=== PATIENT | male | born 1950 | race African-American/Black ===

== ENCOUNTER 2016-07-28 10:11 | Emergency (ER) | payer MEDICARE, OTHER ==
[~2016-07-28] VITALS: Ht 177.8 cm; Wt 81.8 kg
[~2016-07-28 10:11] MED LIST: ADVAIR 500/28 DISKU1 IH; ADVIL200 MG PO; AEROBID INHALER7 GM IH; ALBUTEROL0.09 MG/A1 IH; AMLODIPINE10 MG PO; ASMANEX TW0.22 MG/A1 IH; ASPIRIN 81M81 MG/TA2 PO; ATROVENT I0.2 MG/1 M IH; CLARITIN 1010 MG/TAB PO; CLARITIN REDITA10 MG PO; D-31000 IU PO; FISH OIL CONCEN1 SGL PO; FLOMAX 0.40.4 MG/CAP PO; FLONASE NASAL S16 GM NS; FOSINOPRIL SODI10 MG PO; FOSINOPRIL SODI40 MG PO; HCTZ 25MG TAB25 MG PO; HCTZ 25MG25 MG PO; IPRATROPIUM BROM3 M1 IH; KEPPRA 500MG500 MG PO; LANAVITE1 CAP PO; LEVAQUIN 250MG250 MG PO; LEVAQUIN 750MG750 M1 PO; MEDROL 4MG DOSPA4 MG PO; MILLIPRED5 MG PO; MUCINEX 60600 MG/TA1 PO; MULTIPLE VITAMI1 CAP PO; NORCO 325 MG-51 TAB PO; NORVASC 10MG10 MG PO; NORVASC 5MG5 MG/TAB PO; OMEGA 31000 MG PO; PRAVACHOL80 MG PO; PREDNISONE20 MG PO; PRILOTC PO; PRINIVIL40 MG PO; PROAIR HFA0.09 MG/AC IH; RANITIDINE300 MG PO; RT ADVAIR 528 DISKUS IH; SEE LIST; SEREVENT IH; SINGULAIR 110 MG/TAB PO; SINGULAIR10 MG PO; TRIAMINIC COUG PO; TUSS PO; UNABLE; ZOCOR 80MG80 MG PO
[2016-07-28 10:16] VITALS: TEMP 98.5
[2016-07-28] MEDS ORDERED: D-1000 185 MG-11 TAB PO (10:23)
[2016-07-28 10:44] LABS: BASO % 0.1 % (0.0-2.0); EOS # 0.2 (0.0-0.7); EOS % 1.4 % (0-4.0); GRAN # 10.9 (1.4-6.5); GRAN % 82.1 % (42.2-75.2); HEMATOCRIT 42.8 % (42.0-52.0); HEMOGLOBIN 14.3 g/dl (13.5-18.0); LYMPH # 1.6 (1.2-3.4); LYMPH % 11.9 % (20.0-51.0); MEAN CELL VOLUME 92 fl (80.0-100.0); MEAN CORPUSCULAR HEMOGLOBIN 31 pg (27.0-31.0); MEAN CORPUSCULAR HGB CONC 33 g/dl (33.0-37.0); MEAN PLATELET VOLUME 10.2 fl (7.4-10.4); MONO # 0.5 (0.1-0.6); MONO % 3.8 % (1.7-9.3); PLATELET COUNT 215 K/mm3 (130-400); RED BLOOD COUNT 4.64 M/mm3 (4.20-5.60); REDCELL DISTRIBUTION WIDTH-CV 13.3 % (11.5-14.5); WHITE BLOOD COUNT 13.3 K/mm3 (4.8-10.8)
[2016-07-28 10:55] LABS: ADJUSTED CALCIUM 9.8 mg/dL (8.4-10.2); ALANINE AMINOTRANSFERASE 35 U/L (21-72); ALBUMIN 4.1 gm/dL (3.5-5.0); ALKALINE PHOSPHATASE 94 U/L (50-136); ANION GAP 13 mmol/L (7-16); BILIRUBIN,TOTAL 1.5 mg/dL (0.0-1.0); BLOOD UREA NITROGEN 12 mg/dL (9-20); CALCIUM 9.9 mg/dL (8.4-10.2); CARBON DIOXIDE 27 mmol/L (22-30); CHLORIDE 101 mmol/L (98-107); CREATININE, serum 0.99 mg/dL (0.66-1.25); GLUCOSE 114 mg/dL (74-106); POTASSIUM 3.1 mmol/L (3.4-5.0); SODIUM 141 mmol/L (137-145); TOTAL PROTEIN 7.1 gm/dL (6.4-8.2)
[2016-07-28 10:59] LABS: LIPASE < 10 U/L (23-300)
[2016-07-28 11:07] LABS: B-TYPE NATRIURETIC PEPTIDE 80 pg/mL (0-125)
[2016-07-28 11:32] LABS: TROPONIN-I < 0.012 ng/mL (0.000-0.034)
[2016-07-28] MEDS ORDERED: ATROVENT INHALE14 GM IH (11:46)
[2016-07-28] MEDS ORDERED: LEVAQUIN 750MG750 M1 PO (11:46)
[2016-07-28] MEDS ORDERED: PREDNISONE20 MG PO (11:46)
[2016-07-28] MEDS ORDERED: ULTRAM 50MG TAB50 MG PO (11:46)
[2016-07-28 12:30] VITALS: BP 115/80; PULSE 98
[2016-10-21] MEDS ORDERED: SPIRIVA RE2.5 MCG/Ac IH (03:37)
[2016-10-21] MEDS ORDERED: PREDNISONE10 MG PO ×2 (04:55→05:25)
== END 2016-07-28 12:30 | disposition home or self-care (01) ==
LOC: COL.ER 10:11
PROVIDERS: Emergency Medicine
DX: J18.9 Pneumonia, unspecified organism (principal); J44.0 Chronic obstructive pulmonary disease with (acute) lower respiratory infection; J44.1 Chronic obstructive pulmonary disease with (acute) exacerbation; I10 Essential (primary) hypertension; I45.2 Bifascicular block
CPT/HCPCS: J1170; J1885; J7512

== ENCOUNTER 2016-09-05 08:37 | Emergency (ER) | payer MEDICARE, OTHER ==
[~2016-09-05] VITALS: Ht 177.8 cm; Wt 81.8 kg
[~2016-09-05 08:37] MED LIST changes: +ATROVENT INHALE14 GM IH; +D-1000 185 MG-11 TAB PO; +ULTRAM 50MG TAB50 MG PO
[2016-09-05 08:44] VITALS: TEMP 97.8
[2016-09-05 09:16] LABS: BASO % 0.4 % (0.0-2.0); EOS # 0.8 (0.0-0.7); EOS % 14.8 % (0-4.0); GRAN # 3.4 (1.4-6.5); GRAN % 62.2 % (42.2-75.2); HEMATOCRIT 38.3 % (42.0-52.0); LYMPH # 0.6 (1.2-3.4); LYMPH % 11.4 % (20.0-51.0); MEAN CELL VOLUME 91 fl (80.0-100.0); MEAN CORPUSCULAR HEMOGLOBIN 31 pg (27.0-31.0); MEAN CORPUSCULAR HGB CONC 34 g/dl (33.0-37.0); MEAN PLATELET VOLUME 9.7 fl (7.4-10.4); MONO # 0.6 (0.1-0.6); MONO % 10.7 % (1.7-9.3); PLATELET COUNT 268 K/mm3 (130-400); RED BLOOD COUNT 4.19 M/mm3 (4.20-5.60); REDCELL DISTRIBUTION WIDTH-CV 12.8 % (11.5-14.5); WHITE BLOOD COUNT 5.5 K/mm3 (4.8-10.8)
[2016-09-05 09:29] LABS: ADJUSTED CALCIUM 9.9 mg/dL (8.4-10.2); ALBUMIN 4.1 gm/dL (3.5-5.0); CREATININE, serum 0.99 mg/dL (0.66-1.25); POTASSIUM 3.4 mmol/L (3.4-5.0); TOTAL PROTEIN 7.4 gm/dL (6.4-8.2)
[2016-09-05] MEDS ORDERED: IPRATROPIUM BROM3 M1 IH (10:23)
[2016-09-05] MEDS ORDERED: LEVAQUIN 5500 MG/TA1 PO (10:23)
[2016-09-05] MEDS ORDERED: PREDNISONE20 MG PO (10:23)
[2016-09-05 11:00] VITALS: BP 121/93; PULSE 102
[2016-10-21] MEDS ORDERED: SPIRIVA RE2.5 MCG/Ac IH (03:37)
[2016-10-21] MEDS ORDERED: PREDNISONE10 MG PO ×2 (04:55→05:25)
== END 2016-09-05 11:01 | disposition home or self-care (01) ==
LOC: COL.ER 08:37
PROVIDERS: Family Medicine
DX: J69.0 Pneumonitis due to inhalation of food and vomit (principal); J44.0 Chronic obstructive pulmonary disease with (acute) lower respiratory infection; J20.9 Acute bronchitis, unspecified; I10 Essential (primary) hypertension; J45.909 Unspecified asthma, uncomplicated; K80.20 Calculus of gallbladder without cholecystitis without obstruction; I51.7 Cardiomegaly; K21.9 Gastro-esophageal reflux disease without esophagitis
CPT/HCPCS: J7030; J8540; Q9967

== ENCOUNTER → 2016-10-21 | Emergency (ER) | payer MEDICARE, OTHER ==
[~2016-10-21] VITALS: Ht 177.8 cm; Wt 81.8 kg
[~2016-10-21] MED LIST changes: +CLEOCIN HCL300 MG PO; +LEVAQUIN 5500 MG/TA1 PO; +PREDNISONE10 MG PO; +PROTONIX 40MG T40 MG PO; +REGLAN 10MG10 MG/TAB PO; +SPIRIVA RE2.5 MCG/Ac IH
[2016-10-21 03:32] VITALS: TEMP 98.2
[2016-10-21 04:08] LABS: BASO % 0.6 % (0.0-2.0); EOS # 1.1 (0.0-0.7); GRAN # 2.5 (1.4-6.5); HEMATOCRIT 37.8 % (42.0-52.0); HEMOGLOBIN 12.5 g/dl (13.5-18.0); LYMPH # 0.9 (1.2-3.4); LYMPH % 17.6 % (20.0-51.0); MEAN CELL VOLUME 92 fl (80.0-100.0); MEAN CORPUSCULAR HEMOGLOBIN 30 pg (27.0-31.0); MEAN CORPUSCULAR HGB CONC 33 g/dl (33.0-37.0); MEAN PLATELET VOLUME 9.6 fl (7.4-10.4); MONO # 0.5 (0.1-0.6); MONO % 9.2 % (1.7-9.3); PLATELET COUNT 345 K/mm3 (130-400); RED BLOOD COUNT 4.11 M/mm3 (4.20-5.60); REDCELL DISTRIBUTION WIDTH-CV 13.7 % (11.5-14.5)
[2016-10-21 05:26] VITALS: BP 134/91; PULSE 89
[2016-10-21 06:39] LABS: ADJUSTED CALCIUM 10.1 mg/dL (8.4-10.2); ALBUMIN 4.4 gm/dL (3.5-5.0); BILIRUBIN,TOTAL 0.7 mg/dL (0.0-1.0); CALCIUM 10.4 mg/dL (8.4-10.2); CREATININE, serum 1.09 mg/dL (0.66-1.25); POTASSIUM 3.8 mmol/L (3.4-5.0); TOTAL PROTEIN 7.1 gm/dL (6.4-8.2)
== END | disposition home or self-care (01) ==
LOC: COL.ER 03:30
PROVIDERS: Emergency Medicine
DX: T17.908A Unspecified foreign body in respiratory tract, part unspecified causing other injury, initial encounter (principal); R06.02 Shortness of breath; K22.8 Other specified diseases of esophagus; K21.9 Gastro-esophageal reflux disease without esophagitis; J45.909 Unspecified asthma, uncomplicated; I10 Essential (primary) hypertension
CPT/HCPCS: J7512

== ENCOUNTER 2016-11-20 06:06 | Emergency (ER) | payer MEDICARE, OTHER ==
[~2016-11-20] VITALS: Ht 177.8 cm; Wt 81.8 kg
[~2016-11-20 06:06] MED LIST changes: -CLEOCIN HCL300 MG PO; -PROTONIX 40MG T40 MG PO; -REGLAN 10MG10 MG/TAB PO
[2016-11-20 06:09] VITALS: TEMP 97.5
[2016-11-20 07:41] LABS: HEMATOCRIT 37.4 % (42.0-52.0); HEMOGLOBIN 12.7 g/dl (13.5-18.0); MEAN CELL VOLUME 91 fl (80.0-100.0); MEAN CORPUSCULAR HEMOGLOBIN 31 pg (27.0-31.0); MEAN CORPUSCULAR HGB CONC 34 g/dl (33.0-37.0); MEAN PLATELET VOLUME 10.1 fl (7.4-10.4); PLATELET COUNT 256 K/mm3 (130-400); RED BLOOD COUNT 4.09 M/mm3 (4.20-5.60); REDCELL DISTRIBUTION WIDTH-CV 14.1 % (11.5-14.5); WHITE BLOOD COUNT 4.4 K/mm3 (4.8-10.8)
[2016-11-20 07:45] LABS: ARTERIAL BLD GAS O2 SATURATION 95.3 % (92-100); ARTERIAL BLD GAS TCO2 CT 29.1; ARTERIAL BLOOD GAS BASE EXCESS 3.5 (-2-2); ARTERIAL BLOOD GAS HCO3 27.8 meq/L (22-26); ARTERIAL BLOOD GAS PHT 7.45 C (7.35-7.45); ARTERIAL BLOOD GAS PO2 84.8 mmHg (80-100); ARTERIAL BLOOD GAS PO2T 84.8 (80-100); ARTERIAL BLOOD GAS pH 7.45 (7.35-7.45); OXYHEMOGLOBIN 94.3 %
[2016-11-20 07:46] LABS: ALLEN TEST YES; ALLENS TEST RESULT PASS; ATS? YES
[2016-11-20 07:46] LABS: ADD PATHOLOGY DIFF REVIEW NO
[2016-11-20 07:48] LABS: ADJUSTED CALCIUM 9.8 mg/dL (8.4-10.2); ALANINE AMINOTRANSFERASE 38 U/L (21-72); ALBUMIN 4.1 gm/dL (3.5-5.0); ALKALINE PHOSPHATASE 80 U/L (50-136); ANION GAP 12 mmol/L (7-16); BILIRUBIN,TOTAL 1.2 mg/dL (0.0-1.0); BLOOD UREA NITROGEN 11 mg/dL (9-20); CALCIUM 9.9 mg/dL (8.4-10.2); CARBON DIOXIDE 27 mmol/L (22-30); CHLORIDE 97 mmol/L (98-107); CREATININE, serum 1.05 mg/dL (0.66-1.25); GLUCOSE 89 mg/dL (74-106); POTASSIUM 3.3 mmol/L (3.4-5.0); SODIUM 136 mmol/L (137-145); TOTAL PROTEIN 6.8 gm/dL (6.4-8.2)
[2016-11-20 07:59] LABS: B-TYPE NATRIURETIC PEPTIDE 36 pg/mL (0-125)
[2016-11-20 08:10] LABS: INR 1.1 (0.8-3.0); PROTHROMBIN TIME 11.7 SECONDS (9.7-12.8)
[2016-11-20 08:12] LABS: PARTIAL THROMBOPLASTIN TIME 29.6 SECONDS (26.0-37.0)
[2016-11-20 08:15] LABS: TROPONIN-I < 0.012 ng/mL (0.000-0.034)
[2016-11-20 09:00] LABS: BAND 1 % (0-10); EOSINOPHIL 21 % (0-4); MYELOCYTE 2 % (0-0); NEUTROPHILS 52 % (42.0-75.2); PLATELET ESTIMATE NORMAL (NORMAL); TOTAL CELLS COUNTED 100
[2016-11-20 09:01] LABS: ANISOCYTOSIS 1+
[2016-11-20 09:02] LABS: OVALOCYTES 1+; POLYCHROMASIA 1+
[2016-11-20] MEDS ORDERED: CLEOCIN HCL300 MG PO (10:12)
[2016-11-20] MEDS ORDERED: REGLAN 10MG10 MG/TAB PO (10:12)
[2016-11-20] MEDS ORDERED: PROTONIX 40MG T40 MG PO (10:12)
[2016-11-20 11:16] VITALS: BP 115/83; PULSE 97
== END 2016-11-20 11:17 | disposition home or self-care (01) ==
LOC: COL.ER 06:06
PROVIDERS: Emergency Medicine
DX: J69.0 Pneumonitis due to inhalation of food and vomit (principal); R33.9 Retention of urine, unspecified; J44.9 Chronic obstructive pulmonary disease, unspecified; I10 Essential (primary) hypertension; J45.909 Unspecified asthma, uncomplicated
CPT/HCPCS: C9113; J2765; J7512; Q9967

== ENCOUNTER 2017-06-05 04:05 | Emergency (ER) | payer MEDICARE, OTHER ==
[~2017-06-05] VITALS: Ht 177.8 cm; Wt 84.1 kg
[~2017-06-05 04:05] MED LIST changes: +CLEOCIN HCL300 MG PO; +PRILOTC; -PRILOTC PO; +PROTONIX 40MG T40 MG PO; +REGLAN 10MG10 MG/TAB PO
[2017-06-05 04:15] VITALS: TEMP 97.6
[2017-06-05 04:27] LABS: EOS # 0.2 (0.0-0.7); EOS % 5.6 % (0-4.0); GRAN # 2.6 (1.4-6.5); GRAN % 72.1 % (42.2-75.2); LYMPH # 0.5 (1.2-3.4); LYMPH % 13.4 % (20.0-51.0); MEAN CELL VOLUME 96 fl (80.0-100.0); MEAN CORPUSCULAR HEMOGLOBIN 32 pg (27.0-31.0); MEAN CORPUSCULAR HGB CONC 33 g/dl (33.0-37.0); MONO # 0.3 (0.1-0.6); MONO % 8.1 % (1.7-9.3); PLATELET COUNT 210 K/mm3 (130-400); RED BLOOD COUNT 3.81 M/mm3 (4.20-5.60); WHITE BLOOD COUNT 3.6 K/mm3 (4.8-10.8)
[2017-06-05 04:28] LABS: HEMATOCRIT 36.5 % (42.0-52.0)
[2017-06-05 04:35] LABS: ADJUSTED CALCIUM 9.8 mg/dL (8.4-10.2); ALANINE AMINOTRANSFERASE 37 U/L (21-72); ALBUMIN 4.5 gm/dL (3.5-5.0); ALKALINE PHOSPHATASE 80 U/L (50-136); ANION GAP 9 mmol/L (7-16); BILIRUBIN,TOTAL 0.6 mg/dL (0.0-1.0); BLOOD UREA NITROGEN 13 mg/dL (9-20); CALCIUM 10.2 mg/dL (8.4-10.2); CARBON DIOXIDE 27 mmol/L (22-30); CHLORIDE 105 mmol/L (98-107); CREATININE, serum 1.19 mg/dL (0.66-1.25); GLUCOSE 103 mg/dL (74-106); POTASSIUM 3.5 mmol/L (3.4-5.0); SODIUM 140 mmol/L (137-145); TOTAL PROTEIN 7.1 gm/dL (6.4-8.2)
[2017-06-05 04:55] LABS: INR 1.1 (0.8-3.0); PARTIAL THROMBOPLASTIN TIME 28.5 SECONDS (26.0-37.0)
[2017-06-05 05:01] LABS: TROPONIN-I < 0.012 ng/mL (0.000-0.034)
[2017-06-05 05:02] LABS: B-TYPE NATRIURETIC PEPTIDE 52 pg/mL (0-125)
[2017-06-05] MEDS ORDERED: PREDNISONE20 MG PO (05:27)
[2017-06-05 05:50] VITALS: BP 161/105; PULSE 91
== END 2017-06-05 05:47 | disposition home or self-care (01) ==
LOC: COL.ER 04:05
PROVIDERS: Family Medicine
DX: J44.1 Chronic obstructive pulmonary disease with (acute) exacerbation (principal); I10 Essential (primary) hypertension; I51.7 Cardiomegaly; K21.9 Gastro-esophageal reflux disease without esophagitis; Z87.891 Personal history of nicotine dependence; Z79.82 Long term (current) use of aspirin
CPT/HCPCS: J2930; J7512

== ENCOUNTER 2017-08-20 19:33 | Emergency (ER) | payer MEDICARE, OTHER ==
[~2017-08-20] VITALS: Ht 177.8 cm; Wt 83.6 kg
[2017-08-20 19:44] VITALS: TEMP 97.2
[2017-08-20 20:04] LABS: MEAN CELL VOLUME 95 fl (80.0-100.0); MEAN CORPUSCULAR HGB CONC 33 g/dl (33.0-37.0); PLATELET COUNT 300 K/mm3 (130-400); RED BLOOD COUNT 3.49 M/mm3 (4.20-5.60); REDCELL DISTRIBUTION WIDTH-CV 13.8 % (11.5-14.5)
[2017-08-20 20:05] LABS: HEMATOCRIT 33.2 % (42.0-52.0); HEMOGLOBIN 10.8 g/dl (13.5-18.0); MEAN CORPUSCULAR HEMOGLOBIN 31 pg (27.0-31.0)
[2017-08-20 20:11] LABS: ALBUMIN 4.5 gm/dL (3.5-5.0); BILIRUBIN,TOTAL 0.5 mg/dL (0.0-1.0); CALCIUM 10.4 mg/dL (8.4-10.2); CREATININE, serum 2.23 mg/dL (0.66-1.25); POTASSIUM 3.9 mmol/L (3.4-5.0); TOTAL PROTEIN 7.4 gm/dL (6.4-8.2)
[2017-08-20 20:31] LABS: BAND 6 % (0-10); EOSINOPHIL 19 % (0-4); LYMPHOCYTE 8 % (20.0-51.0); NEUTROPHILS 62 % (42.0-75.2); NUCLEATED RED BLOOD CELL 1 (0-6); PLATELET ESTIMATE INCREASED (NORMAL)
[2017-08-20 21:55] LABS: COLLECTION METHOD CLEAN CATCH
[2017-08-20 22:02] LABS: MUCOUS Present /lpf; PH 5 (5-8); SQUAMOUS EPITHELIAL 0-2 /hpf; URINE APPEARANCE Clear; URINE BACTERIA None Seen /hpf; URINE BILIRUBIN Negative (NEGATIVE); URINE BLOOD Negative (NEGATIVE); URINE COLOR Yellow; URINE GLUCOSE Negative (NEGATIVE); URINE KETONE Negative (NEGATIVE); URINE LEUKOCYTE ESTERASE Negative (NEGATIVE); URINE NITRATE Negative (NEGATIVE); URINE PROTEIN(semi-quant) Negative (NEGATIVE); URINE RBC 0-2 /hpf; URINE UROBILINOGEN Negative (NEGATIVE)
[2017-08-20] MEDS ORDERED: PREDNISONE20 MG PO (22:39)
[2017-08-20 23:13] VITALS: BP 155/91; PULSE 99
== END 2017-08-20 23:15 | disposition home or self-care (01) ==
LOC: COL.ER 19:33
PROVIDERS: Emergency Medicine
DX: J44.1 Chronic obstructive pulmonary disease with (acute) exacerbation (principal); N28.9 Disorder of kidney and ureter, unspecified; Z79.51 Long term (current) use of inhaled steroids; Z79.82 Long term (current) use of aspirin
CPT/HCPCS: J7030; J7512

== ENCOUNTER 2017-10-07 15:01 | Inpatient (IN) | payer MEDICARE, OTHER ==
[~2017-10-07] VITALS: Ht 177.8 cm; Wt 85.3 kg
[2017-10-07] VITALS (143 sets, daily range): BP systolic 125; BP diastolic 77; PULSE 112; TEMP 97.8; O2SAT 85–96
[2017-10-07 15:30] LABS: BASO % 0.2 % (0.0-2.0); EOS # 1.1 (0.0-0.7); EOS % 24.3 % (0-4.0); GRAN # 2.5 (1.4-6.5); GRAN % 55.2 % (42.2-75.2); LYMPH # 0.6 (1.2-3.4); LYMPH % 13.4 % (20.0-51.0); MEAN CELL VOLUME 97 fl (80.0-100.0); MEAN CORPUSCULAR HGB CONC 33 g/dl (33.0-37.0); MEAN PLATELET VOLUME 10.1 fl (7.4-10.4); MONO # 0.3 (0.1-0.6); MONO % 6.5 % (1.7-9.3); PLATELET COUNT 198 K/mm3 (130-400); RED BLOOD COUNT 3.23 M/mm3 (4.20-5.60); REDCELL DISTRIBUTION WIDTH-CV 14.4 % (11.5-14.5)
[2017-10-07 15:39] LABS: ALANINE AMINOTRANSFERASE 28 U/L (21-72); ALBUMIN 4.3 gm/dL (3.5-5.0); ALKALINE PHOSPHATASE 90 U/L (50-136); ANION GAP 14 mmol/L (7-16); AST,SGOT 25 U/L (15-37); BILIRUBIN,TOTAL 0.5 mg/dL (0.0-1.0); BLOOD UREA NITROGEN 16 mg/dL (9-20); CALCIUM 9.9 mg/dL (8.4-10.2); CARBON DIOXIDE 23 mmol/L (22-30); CHLORIDE 104 mmol/L (98-107); CREATININE, serum 1.27 mg/dL (0.66-1.25); GLUCOSE 115 mg/dL (74-106); INR 1.1 (0.8-3.0); POTASSIUM 3.6 mmol/L (3.4-5.0); PROTHROMBIN TIME 12.9 SECONDS (9.7-12.8); SODIUM 140 mmol/L (137-145); TOTAL PROTEIN 7.4 gm/dL (6.4-8.2)
[2017-10-07 15:42] LABS: PARTIAL THROMBOPLASTIN TIME 31.2 SECONDS (26.0-37.0)
[2017-10-07 15:46] LABS: HEMATOCRIT 31.4 % (42.0-52.0); HEMOGLOBIN 10.3 g/dl (13.5-18.0); MEAN CORPUSCULAR HEMOGLOBIN 32 pg (27.0-31.0)
[2017-10-07 15:53] LABS: TROPONIN-I < 0.012 ng/mL (0.000-0.034)
[2017-10-07 15:57] LABS: D-DIMER < 200.00 ng/mLDDu (200-230)
[2017-10-07 18:13] LABS: ARTERIAL BLD GAS O2 SATURATION 97.2 % (92-100); ARTERIAL BLD GAS TCO2 CT 22.6; ARTERIAL BLOOD GAS BASE EXCESS -3.2 (-2-2); ARTERIAL BLOOD GAS HCO3 21.5 meq/L (22-26); ARTERIAL BLOOD GAS PCO2 37.1 mmHg (35-45); ARTERIAL BLOOD GAS pH 7.38 (7.35-7.45)
[2017-10-07 18:25] LABS: COLLECTION METHOD CLEAN CATCH
[2017-10-07 18:32] LABS: MUCOUS Present /lpf; PH 5 (5-8); SQUAMOUS EPITHELIAL 0-2 /hpf; URINE APPEARANCE Clear; URINE BACTERIA Rare /hpf; URINE BILIRUBIN Negative (NEGATIVE); URINE BLOOD Negative (NEGATIVE); URINE COLOR Yellow; URINE GLUCOSE Negative (NEGATIVE); URINE KETONE Negative (NEGATIVE); URINE LEUKOCYTE ESTERASE Negative (NEGATIVE); URINE NITRATE Negative (NEGATIVE); URINE PROTEIN(semi-quant) 1+ (NEGATIVE); URINE RBC 0-2 /hpf; URINE UROBILINOGEN Negative (NEGATIVE)
[2017-10-08] VITALS (1021 sets, daily range): BP systolic 130–144; BP diastolic 70–97; PULSE 97–134; TEMP 97–98.5; O2SAT 82–97
[2017-10-08 05:47] LABS: BASO % 0.2 % (0.0-2.0); EOS # 0.1 (0.0-0.7); EOS % 2.6 % (0-4.0); GRAN # 3.6 (1.4-6.5); GRAN % 83.6 % (42.2-75.2); HEMATOCRIT 29.4 % (42.0-52.0); HEMOGLOBIN 9.5 g/dl (13.5-18.0); LYMPH # 0.5 (1.2-3.4); MEAN CELL VOLUME 98 fl (80.0-100.0); MEAN CORPUSCULAR HEMOGLOBIN 32 pg (27.0-31.0); MEAN CORPUSCULAR HGB CONC 32 g/dl (33.0-37.0); MEAN PLATELET VOLUME 10.1 fl (7.4-10.4); MONO # 0.1 (0.1-0.6); MONO % 2.1 % (1.7-9.3); PLATELET COUNT 195 K/mm3 (130-400); REDCELL DISTRIBUTION WIDTH-CV 14.6 % (11.5-14.5)
[2017-10-08 06:00] LABS: ALBUMIN 4.2 gm/dL (3.5-5.0); BILIRUBIN,TOTAL 0.3 mg/dL (0.0-1.0); CALCIUM 9.9 mg/dL (8.4-10.2); CREATININE, serum 1.11 mg/dL (0.66-1.25); POTASSIUM 4.4 mmol/L (3.4-5.0); TOTAL PROTEIN 7.1 gm/dL (6.4-8.2)
[2017-10-09] VITALS (756 sets, daily range): BP systolic 122–145; BP diastolic 78–95; PULSE 94–128; TEMP 97.6–98.2; O2SAT 79–97
[2017-10-09 05:56] LABS: MEAN CELL VOLUME 98 fl (80.0-100.0); MEAN CORPUSCULAR HGB CONC 32 g/dl (33.0-37.0); MEAN PLATELET VOLUME 10.2 fl (7.4-10.4); PLATELET COUNT 207 K/mm3 (130-400); RED BLOOD COUNT 2.98 M/mm3 (4.20-5.60); REDCELL DISTRIBUTION WIDTH-CV 14.6 % (11.5-14.5)
[2017-10-09 06:00] LABS: HEMATOCRIT 29.3 % (42.0-52.0); HEMOGLOBIN 9.4 g/dl (13.5-18.0); MEAN CORPUSCULAR HEMOGLOBIN 32 pg (27.0-31.0)
[2017-10-09 06:06] LABS: CALCIUM 10.4 mg/dL (8.4-10.2); CREATININE, serum 1.38 mg/dL (0.66-1.25); POTASSIUM 4.4 mmol/L (3.4-5.0)
[2017-10-10] VITALS (468 sets, daily range): BP systolic 93–152; BP diastolic 66–95; PULSE 90–173; TEMP 97.6–98.2; O2SAT 88–100
[2017-10-10 06:56] LABS: MEAN CELL VOLUME 97 fl (80.0-100.0); MEAN CORPUSCULAR HGB CONC 33 g/dl (33.0-37.0); PLATELET COUNT 217 K/mm3 (130-400); RED BLOOD COUNT 2.87 M/mm3 (4.20-5.60); REDCELL DISTRIBUTION WIDTH-CV 14.7 % (11.5-14.5)
[2017-10-10 07:00] LABS: CALCIUM 10.2 mg/dL (8.4-10.2); CREATININE, serum 1.46 mg/dL (0.66-1.25); POTASSIUM 3.9 mmol/L (3.4-5.0)
[2017-10-10 07:10] LABS: HEMATOCRIT 27.9 % (42.0-52.0); HEMOGLOBIN 9.1 g/dl (13.5-18.0); MEAN CORPUSCULAR HEMOGLOBIN 32 pg (27.0-31.0)
[2017-10-10 14:27] LABS: INR 1.2 (0.8-3.0); PROTHROMBIN TIME 13.8 SECONDS (9.7-12.8)
[2017-10-10 23:42] LABS: PARTIAL THROMBOPLASTIN TIME 84.4 SECONDS (26.0-37.0)
[2017-10-11] VITALS (1229 sets, daily range): BP systolic 103–132; BP diastolic 54–98; PULSE 97–134; TEMP 97.2–98.1; O2SAT 72–100
[2017-10-11 05:37] LABS: MEAN CELL VOLUME 98 fl (80.0-100.0); MEAN CORPUSCULAR HGB CONC 32 g/dl (33.0-37.0); MEAN PLATELET VOLUME 9.8 fl (7.4-10.4); PLATELET COUNT 228 K/mm3 (130-400); RED BLOOD COUNT 2.99 M/mm3 (4.20-5.60); REDCELL DISTRIBUTION WIDTH-CV 14.6 % (11.5-14.5)
[2017-10-11 05:38] LABS: HEMOGLOBIN 9.4 g/dl (13.5-18.0); MEAN CORPUSCULAR HEMOGLOBIN 31 pg (27.0-31.0)
[2017-10-11 05:39] LABS: HEMATOCRIT 29.3 % (42.0-52.0)
[2017-10-11 05:52] LABS: CALCIUM 10.4 mg/dL (8.4-10.2); CREATININE, serum 1.35 mg/dL (0.66-1.25); POTASSIUM 3.6 mmol/L (3.4-5.0)
[2017-10-12] VITALS (543 sets, daily range): BP systolic 106–119; BP diastolic 56–85; PULSE 109–125; TEMP 97.1–98.6; O2SAT 77–100
[2017-10-12 05:26] LABS: MEAN CELL VOLUME 98 fl (80.0-100.0); MEAN CORPUSCULAR HGB CONC 32 g/dl (33.0-37.0); MEAN PLATELET VOLUME 9.7 fl (7.4-10.4); PLATELET COUNT 218 K/mm3 (130-400); REDCELL DISTRIBUTION WIDTH-CV 14.8 % (11.5-14.5)
[2017-10-12 05:29] LABS: HEMATOCRIT 29.5 % (42.0-52.0); HEMOGLOBIN 9.5 g/dl (13.5-18.0); MEAN CORPUSCULAR HEMOGLOBIN 32 pg (27.0-31.0)
[2017-10-12 05:43] LABS: CALCIUM 10.3 mg/dL (8.4-10.2); CREATININE, serum 1.57 mg/dL (0.66-1.25); POTASSIUM 3.8 mmol/L (3.4-5.0)
[2017-10-12 06:01] LABS: ANISOCYTOSIS 1+; EOSINOPHIL 1 % (0-4); HYPOCHROMIA 1+; LYMPHOCYTE 20 % (20.0-51.0); NEUTROPHILS 79 % (42.0-75.2); NUCLEATED RED BLOOD CELL 1 (0-6); POIKILOCYTOSIS 1+; POLYCHROMASIA 1+; ROULEAUX 2+
[2017-10-12 06:02] LABS: MICROCYTOSIS 1+; OVALOCYTES 1+; STOMATOCYTE 1+
[2017-10-12 06:13] LABS: THYROID STIMULATING HORMONE 0.587 uIU/mL (0.465-4.680)
[2017-10-13 00:38] VITALS: BP 103/61; PULSE 97; TEMP 986
[2017-10-13 03:36] VITALS: BP 99/60; PULSE 95; TEMP 98.8
[2017-10-13 07:56] VITALS: BP 115/72; PULSE 102; TEMP 98.3
[2017-10-13 12:52] VITALS: BP 125/66; PULSE 100; TEMP 98.4
[2017-10-13 19:18] VITALS: BP 121/95; PULSE 100; TEMP 98.3
[2017-10-14 00:05] VITALS: BP 137/89; PULSE 104; TEMP 98.4
[2017-10-14 03:45] VITALS: BP 113/64; PULSE 101; TEMP 98.9
[2017-10-14 07:26] VITALS: BP 117/62; PULSE 89; TEMP 98.6
[2017-10-14 07:40] LABS: MEAN CELL VOLUME 98 fl (80.0-100.0); MEAN CORPUSCULAR HGB CONC 32 g/dl (33.0-37.0); PLATELET COUNT 234 K/mm3 (130-400); RED BLOOD COUNT 2.56 M/mm3 (4.20-5.60); REDCELL DISTRIBUTION WIDTH-CV 14.8 % (11.5-14.5)
[2017-10-14 07:45] LABS: MEAN CORPUSCULAR HEMOGLOBIN 31 pg (27.0-31.0)
[2017-10-14 07:49] LABS: CALCIUM 9.4 mg/dL (8.4-10.2); CREATININE, serum 1.2 mg/dL (0.66-1.25); POTASSIUM 3.6 mmol/L (3.4-5.0)
[2017-10-14 08:33] LABS: BAND 2 % (0-10); HYPOCHROMIA 1+; LYMPHOCYTE 12 % (20.0-51.0); NEUTROPHILS 84 % (42.0-75.2); NUCLEATED RED BLOOD CELL 1 (0-6); PLATELET ESTIMATE NORMAL (NORMAL)
[2017-10-14] MEDS ORDERED: PROAIR HFA0.09 MG/AC IH (08:57)
[2017-10-14] MEDS ORDERED: ELIQUIS 5MG PO (08:58)
[2017-10-14] MEDS ORDERED: CORDARONE200 MG/TAB PO (09:04)
[2017-10-14] MEDS ORDERED: TUSS PO (09:06)
[2017-10-14] MEDS ORDERED: PROTONIX 40MG T40 MG PO (09:07)
[2017-10-14] MEDS ORDERED: PREDNISONE10 MG PO (09:19)
[2017-10-14 11:31] VITALS: BP 124/72; PULSE 94; TEMP 98.4
== END 2017-10-14 13:40 | disposition home or self-care (01) | DRG 189 ==
LOC: COL.ER 15:01 → ICU 18:05 → SURG 18:05 → ICU 18:06 → SURG 18:06 → ICU 10-09 13:36 → SURG 10-09 14:00 → ICU 10-10 13:20 → SURG 10-10 13:20 → ICU 10-11 16:55 → SURG 10-11 17:10 → ICU 10-11 17:10 → MEDICAL 10-12 16:57 → ICU 10-12 16:57 → MEDICAL 10-12 19:00
PROVIDERS: Emergency Medicine; Internal Medicine; Internal Medicine Interventional Cardiology; Nurse Practitioner Family; Physician Assistant
DX: J96.01 Acute respiratory failure with hypoxia (principal); J44.1 Chronic obstructive pulmonary disease with (acute) exacerbation; N17.9 Acute kidney failure, unspecified; J45.901 Unspecified asthma with (acute) exacerbation; K21.9 Gastro-esophageal reflux disease without esophagitis; E78.5 Hyperlipidemia, unspecified; D64.9 Anemia, unspecified; I48.91 Unspecified atrial fibrillation; K44.9 Diaphragmatic hernia without obstruction or gangrene; I10 Essential (primary) hypertension; R60.0 Localized edema
CPT/HCPCS: 99222; 99223-AI; 99232-AI; 99233-AI; 99239; G0378; J0282; J0456; J1644; J1650; J1956; J2405; J2920; J2930; J7030; J7050; J7060; J7512

== ENCOUNTER 2017-11-06 02:04 | Emergency (ER) | payer MEDICARE, OTHER ==
[~2017-11-06] VITALS: Ht 177.8 cm; Wt 84.1 kg
[~2017-11-06 02:04] MED LIST changes: +CORDARONE200 MG/TAB PO; +ELIQUIS 5MG PO
[2017-11-06 02:10] VITALS: BP 135/83; TEMP 96.9
[2017-11-06 02:44] LABS: BASO % 0.4 % (0.0-2.0); EOS # 0.3 (0.0-0.7); EOS % 11.2 % (0-4.0); GRAN # 1.6 (1.4-6.5); GRAN % 59.3 % (42.2-75.2); LYMPH # 0.6 (1.2-3.4); LYMPH % 20.5 % (20.0-51.0); MEAN CELL VOLUME 98 fl (80.0-100.0); MEAN CORPUSCULAR HGB CONC 32 g/dl (33.0-37.0); MEAN PLATELET VOLUME 9.9 fl (7.4-10.4); MONO # 0.2 (0.1-0.6); MONO % 7.5 % (1.7-9.3); PLATELET COUNT 202 K/mm3 (130-400); RED BLOOD COUNT 2.51 M/mm3 (4.20-5.60)
[2017-11-06 02:45] LABS: HEMATOCRIT 24.5 % (42.0-52.0); HEMOGLOBIN 7.8 g/dl (13.5-18.0); MEAN CORPUSCULAR HEMOGLOBIN 31 pg (27.0-31.0)
[2017-11-06 02:49] LABS: INR 1.5 (0.8-3.0); PROTHROMBIN TIME 17.9 SECONDS (9.7-12.8)
[2017-11-06 02:53] LABS: ALANINE AMINOTRANSFERASE 27 U/L (21-72); ALBUMIN 3.7 gm/dL (3.5-5.0); ALKALINE PHOSPHATASE 82 U/L (50-136); ANION GAP 13 mmol/L (7-16); AST,SGOT 20 U/L (15-37); BILIRUBIN,TOTAL 0.4 mg/dL (0.0-1.0); BLOOD UREA NITROGEN 15 mg/dL (9-20); CALCIUM 9.2 mg/dL (8.4-10.2); CARBON DIOXIDE 24 mmol/L (22-30); CHLORIDE 105 mmol/L (98-107); CREATININE, serum 1.33 mg/dL (0.66-1.25); GLUCOSE 105 mg/dL (74-106); POTASSIUM 3.8 mmol/L (3.4-5.0); SODIUM 141 mmol/L (137-145); TOTAL PROTEIN 6.7 gm/dL (6.4-8.2)
[2017-11-06 03:05] LABS: TROPONIN-I < 0.012 ng/mL (0.000-0.034)
[2017-11-06] MEDS ORDERED: PREDNISONE20 MG PO ×3 (03:25→04:17)
[2017-11-06 03:35] VITALS: PULSE 86
[2017-11-06] MEDS ORDERED: DOXYCYCLINE 10100 MG PO (12:48)
== END 2017-11-06 03:35 | disposition home or self-care (01) ==
LOC: COL.ER 02:04
PROVIDERS: Emergency Medicine
DX: J44.1 Chronic obstructive pulmonary disease with (acute) exacerbation (principal); I10 Essential (primary) hypertension; E78.5 Hyperlipidemia, unspecified; I48.91 Unspecified atrial fibrillation; D70.9 Neutropenia, unspecified; D64.9 Anemia, unspecified; Z98.890 Other specified postprocedural states; Z79.82 Long term (current) use of aspirin
CPT/HCPCS: J2930; J7030

== ENCOUNTER 2017-11-22 20:20 | Inpatient (IN) | payer MEDICARE, OTHER ==
[~2017-11-22] VITALS: Ht 177.8 cm; Wt 81.7 kg
[~2017-11-22 20:20] MED LIST changes: +DOXYCYCLINE 10100 MG PO
[2017-11-22 21:15] LABS: HEMOGLOBIN 8.3 g/dl (13.5-18.0); MEAN CELL VOLUME 97 fl (80.0-100.0); MEAN CORPUSCULAR HEMOGLOBIN 31 pg (27.0-31.0); MEAN CORPUSCULAR HGB CONC 32 g/dl (33.0-37.0); MEAN PLATELET VOLUME 10.2 fl (7.4-10.4); PLATELET COUNT 242 K/mm3 (130-400); RED BLOOD COUNT 2.69 M/mm3 (4.20-5.60); REDCELL DISTRIBUTION WIDTH-CV 15.5 % (11.5-14.5)
[2017-11-22 21:17] LABS: INR 1.5 (0.8-3.0); PROTHROMBIN TIME 17.1 SECONDS (9.7-12.8)
[2017-11-22 21:27] LABS: ALANINE AMINOTRANSFERASE 30 U/L (21-72); ALBUMIN 3.7 gm/dL (3.5-5.0); ALKALINE PHOSPHATASE 86 U/L (50-136); AMYLASE 59 U/L (30-110); ANION GAP 14 mmol/L (7-16); AST,SGOT 44 U/L (15-37); BILIRUBIN,TOTAL 0.8 mg/dL (0.0-1.0); BLOOD UREA NITROGEN 47 mg/dL (9-20); CALCIUM 10.7 mg/dL (8.4-10.2); CARBON DIOXIDE 25 mmol/L (22-30); CHLORIDE 94 mmol/L (98-107); GLUCOSE 123 mg/dL (74-106); POTASSIUM 5.1 mmol/L (3.4-5.0); SODIUM 134 mmol/L (137-145); TOTAL PROTEIN 7.5 gm/dL (6.4-8.2)
[2017-11-22 21:32] LABS: LIPASE < 10 U/L (23-300)
[2017-11-22 21:35] LABS: CREATININE, serum 5.15 mg/dL (0.66-1.25)
[2017-11-22 21:36] LABS: TROPONIN-I 0.015 ng/mL (0.000-0.034)
[2017-11-22 21:37] LABS: C-REACTIVE PROTEIN 22.5 mg/dL (0.0-0.9)
[2017-11-22 21:59] LABS: BAND 28 % (0-10); LYMPHOCYTE 4 % (20.0-51.0); METAMYELOCYTE 2 % (0-0); MYELOCYTE 1 % (0-0); NEUTROPHILS 60 % (42.0-75.2); PLATELET ESTIMATE NORMAL (NORMAL)
[2017-11-22 22:15] LABS: COLLECTION METHOD CLEAN CATCH
[2017-11-22 22:26] LABS: AMORPHOUS CRYSTAL Present /uL; MUCOUS Present /lpf; PH 6 (5-8); SQUAMOUS EPITHELIAL 0-2 /hpf; URINE APPEARANCE Cloudy; URINE BACTERIA Moderate /hpf; URINE BILIRUBIN Negative (NEGATIVE); URINE BLOOD 3+ (NEGATIVE); URINE COLOR Yellow; URINE GLUCOSE Negative (NEGATIVE); URINE KETONE Negative (NEGATIVE); URINE LEUKOCYTE ESTERASE 3+ (NEGATIVE); URINE NITRATE Negative (NEGATIVE); URINE PROTEIN(semi-quant) 2+ (NEGATIVE); URINE RBC 20-50 /hpf; URINE UROBILINOGEN Negative (NEGATIVE)
[2017-11-22] MEDS ORDERED: PACERONE200 MG PO (23:18)
[2017-11-22] MEDS ORDERED: FERROUS SU325 MG/TAB PO (23:19)
[2017-11-22] MEDS ORDERED: CENTRUM SILVER1 CTB PO (23:20)
[2017-11-22] MEDS ORDERED: VITAMIN C500 MG PO (23:20)
[2017-11-22] MEDS ORDERED: RT ADVAIR 528 DISKUS IH (23:22)
[2017-11-23] VITALS (1075 sets, daily range): BP systolic 106–120; BP diastolic 65–79; PULSE 67–94; TEMP 98.1–99.5; O2SAT 89–100
[2017-11-23 03:34] LABS: MEAN CELL VOLUME 97 fl (80.0-100.0); MEAN CORPUSCULAR HGB CONC 33 g/dl (33.0-37.0); MEAN PLATELET VOLUME 10.1 fl (7.4-10.4); PLATELET COUNT 159 K/mm3 (130-400); RED BLOOD COUNT 2.41 M/mm3 (4.20-5.60); REDCELL DISTRIBUTION WIDTH-CV 15.3 % (11.5-14.5)
[2017-11-23 03:37] LABS: HEMATOCRIT 23.3 % (42.0-52.0); HEMOGLOBIN 7.6 g/dl (13.5-18.0); MEAN CORPUSCULAR HEMOGLOBIN 32 pg (27.0-31.0)
[2017-11-23 03:41] LABS: ALBUMIN 2.7 gm/dL (3.5-5.0); BILIRUBIN,TOTAL 0.4 mg/dL (0.0-1.0); CALCIUM 9.4 mg/dL (8.4-10.2); MAGNESIUM 1.5 mg/dL (1.6-2.3); PHOSPHOROUS 4.7 mg/dL (2.5-4.5); POTASSIUM 4.6 mmol/L (3.4-5.0); TOTAL PROTEIN 5.6 gm/dL (6.4-8.2)
[2017-11-23 03:48] LABS: BAND 45 % (0-10); LYMPHOCYTE 2 % (20.0-51.0); NEUTROPHILS 52 % (42.0-75.2); PLATELET ESTIMATE NORMAL (NORMAL)
[2017-11-23 03:53] LABS: CREATININE, serum 4.66 mg/dL (0.66-1.25)
[2017-11-23 03:55] LABS: HYPOCHROMIA 1+; ROULEAUX 1+
[2017-11-23 04:10] LABS: THYROID STIMULATING HORMONE 0.886 uIU/mL (0.465-4.680)
[2017-11-23 07:22] LABS: FRACTIONAL EXCRETION OF NA+ 3.9 %
[2017-11-23 07:25] LABS: CREATININE, serum 4.61 mg/dL (0.66-1.25)
[2017-11-23 09:25] LABS: PATHOLOGY DIFF REVIEW OK +
[2017-11-23 15:10] LABS: URINE PROTEIN:CREAT RATIO 2.77 (0.00-0.14)
[2017-11-24] VITALS (663 sets, daily range): BP systolic 111–136; BP diastolic 71–85; PULSE 85–96; TEMP 97.8–98.7; O2SAT 85–100
[2017-11-24 05:41] LABS: MEAN CELL VOLUME 98 fl (80.0-100.0); MEAN CORPUSCULAR HGB CONC 32 g/dl (33.0-37.0); MEAN PLATELET VOLUME 9.7 fl (7.4-10.4); PLATELET COUNT 153 K/mm3 (130-400); RED BLOOD COUNT 2.06 M/mm3 (4.20-5.60); REDCELL DISTRIBUTION WIDTH-CV 15.6 % (11.5-14.5)
[2017-11-24 05:54] LABS: CALCIUM 8.7 mg/dL (8.4-10.2); MAGNESIUM 2.1 mg/dL (1.6-2.3)
[2017-11-24 05:58] LABS: CREATININE, serum 4.02 mg/dL (0.66-1.25)
[2017-11-24 05:59] LABS: HEMATOCRIT 20.2 % (42.0-52.0); MEAN CORPUSCULAR HEMOGLOBIN 31 pg (27.0-31.0)
[2017-11-24 06:03] LABS: HEMOGLOBIN 6.4 g/dl (13.5-18.0)
[2017-11-24 06:17] LABS: BAND 31 % (0-10); HYPOCHROMIA 1+; LYMPHOCYTE 3 % (20.0-51.0); METAMYELOCYTE 1 % (0-0); NEUTROPHILS 64 % (42.0-75.2); PLATELET ESTIMATE NORMAL (NORMAL); ROULEAUX 1+
[2017-11-24 14:05] LABS: HEMATOCRIT 24.1 % (42.0-52.0); HEMOGLOBIN 7.6 g/dl (13.5-18.0)
[2017-11-25] VITALS (605 sets, daily range): BP systolic 116–151; BP diastolic 71–110; PULSE 72–103; TEMP 97.9–98.8; O2SAT 84–100
[2017-11-25 06:13] LABS: CALCIUM 8.7 mg/dL (8.4-10.2); CREATININE, serum 3.1 mg/dL (0.66-1.25); POTASSIUM 3.5 mmol/L (3.4-5.0)
[2017-11-25 06:47] LABS: MEAN CELL VOLUME 97 fl (80.0-100.0); MEAN CORPUSCULAR HGB CONC 32 g/dl (33.0-37.0); MEAN PLATELET VOLUME 10.8 fl (7.4-10.4); PLATELET COUNT 187 K/mm3 (130-400); RED BLOOD COUNT 2.32 M/mm3 (4.20-5.60); REDCELL DISTRIBUTION WIDTH-CV 16.1 % (11.5-14.5)
[2017-11-25 07:00] LABS: HEMATOCRIT 22.6 % (42.0-52.0); HEMOGLOBIN 7.2 g/dl (13.5-18.0); MEAN CORPUSCULAR HEMOGLOBIN 31 pg (27.0-31.0)
[2017-11-25 09:50] LABS: BAND 7 % (0-10); EOSINOPHIL 3 % (0-4); LYMPHOCYTE 5 % (20.0-51.0); METAMYELOCYTE 1 % (0-0); NEUTROPHILS 82 % (42.0-75.2); PLATELET ESTIMATE NORMAL (NORMAL)
[2017-11-26 04:28] VITALS: BP 152/83; PULSE 86; TEMP 98.5
[2017-11-26 08:23] LABS: CALCIUM 8.8 mg/dL (8.4-10.2); CREATININE, serum 2.25 mg/dL (0.66-1.25); POTASSIUM 3.3 mmol/L (3.4-5.0)
[2017-11-26 09:25] VITALS: BP 147/89; PULSE 91; TEMP 98.4
[2017-11-26 12:23] VITALS: BP 142/80; PULSE 95; TEMP 98.4
[2017-11-26 16:00] VITALS: BP 132/82; PULSE 91; TEMP 98.9
[2017-11-27 00:33] VITALS: BP 149/89; PULSE 81; TEMP 98.5
[2017-11-27 02:57] VITALS: BP 140/83; PULSE 90; TEMP 98.2
[2017-11-27 06:37] LABS: MEAN CELL VOLUME 96 fl (80.0-100.0); MEAN CORPUSCULAR HGB CONC 31 g/dl (33.0-37.0); MEAN PLATELET VOLUME 10.4 fl (7.4-10.4); PLATELET COUNT 193 K/mm3 (130-400); RED BLOOD COUNT 2.39 M/mm3 (4.20-5.60)
[2017-11-27 06:45] LABS: HEMATOCRIT 22.9 % (42.0-52.0); HEMOGLOBIN 7.2 g/dl (13.5-18.0); MEAN CORPUSCULAR HEMOGLOBIN 30 pg (27.0-31.0)
[2017-11-27 06:50] LABS: CALCIUM 8.8 mg/dL (8.4-10.2); CREATININE, serum 1.93 mg/dL (0.66-1.25); POTASSIUM 3.6 mmol/L (3.4-5.0)
[2017-11-27 07:49] VITALS: BP 127/66; PULSE 104; TEMP 98.4
[2017-11-27 08:57] LABS: BAND 3 % (0-10); LYMPHOCYTE 9 % (20.0-51.0); NEUTROPHILS 83 % (42.0-75.2); OVALOCYTES 2+; PLATELET ESTIMATE NORMAL (NORMAL)
[2017-11-27] MEDS ORDERED: LEVAQUIN 2250 MG/TAB PO (11:07)
== END 2017-11-27 13:50 | disposition home or self-care (01) | DRG 854 ==
LOC: COL.ER 20:20 → ICU 22:37 → MEDICAL 11-25 17:05 → ICU 11-25 17:05 → MEDICAL 11-25 17:05
PROVIDERS: Emergency Medicine; Family Medicine; Internal Medicine Gastroenterology; Internal Medicine Nephrology; Nurse Practitioner Family
PROC: 0QB33ZX Excision of Left Pelvic Bone, Percutaneous Approach, Diagnostic (ICD-10-PCS; principal; 2017-11-23)
PROC: 0DBP8ZX Excision of Rectum, Via Natural or Artificial Opening Endoscopic, Diagnostic (ICD-10-PCS; 2017-11-24)
PROC: 0DB38ZX Excision of Lower Esophagus, Via Natural or Artificial Opening Endoscopic, Diagnostic (ICD-10-PCS; 2017-11-24 12:30)
DX: A41.52 Sepsis due to Pseudomonas (principal); N17.9 Acute kidney failure, unspecified; C90.00 Multiple myeloma not having achieved remission; N13.8 Other obstructive and reflux uropathy; N13.6 Pyonephrosis; J98.11 Atelectasis; I12.9 Hypertensive chronic kidney disease with stage 1 through stage 4 chronic kidney disease, or unspecified chronic kidney disease; N18.9 Chronic kidney disease, unspecified; B96.5 Pseudomonas (aeruginosa) (mallei) (pseudomallei) as the cause of diseases classified elsewhere; I48.91 Unspecified atrial fibrillation; D12.8 Benign neoplasm of rectum; N40.1 Benign prostatic hyperplasia with lower urinary tract symptoms; J44.9 Chronic obstructive pulmonary disease, unspecified; E87.5 Hyperkalemia; E83.52 Hypercalcemia; E83.42 Hypomagnesemia; R33.8 Other retention of urine; D50.0 Iron deficiency anemia secondary to blood loss (chronic); K21.0 Gastro-esophageal reflux disease with esophagitis; K44.9 Diaphragmatic hernia without obstruction or gangrene
CPT/HCPCS: 99223-AI; 99233-AI; 99239; A4314; C9113; G0103; J0692; J1956; J2405; J2704; J2765; J3475; J3480; J7030; P9016

== ENCOUNTER 2018-02-13 05:23 | Day surgery (SDC) | payer MEDICARE, OTHER ==
[~2018-02-13] VITALS: Ht 177.8 cm; Wt 78.2 kg
[2018-02-13] VITALS (13 sets, daily range): BP systolic 110–124; BP diastolic 62–88; PULSE 60–88; TEMP 97.6–99
[~2018-02-13 05:23] MED LIST changes: +CENTRUM SILVER1 CTB PO; +FERROUS SU325 MG/TAB PO; +LEVAQUIN 2250 MG/TAB PO; +PACERONE200 MG PO; +VITAMIN C500 MG PO
[2018-02-13] MEDS ORDERED: MIRALAX PA17 GM/Dose PO (06:37)
[2018-02-13] MEDS ORDERED: PROSCAR 5MG5 MG PO (06:43)
[2018-02-13] MEDS ORDERED: K-TAB10 PO (06:43)
[2018-02-13] MEDS ORDERED: LIPITOR 10MG10 MG PO (06:47)
[2018-02-13] MEDS ORDERED: AZO URINARY PAI95 MG PO (06:50)
[2018-02-13] MEDS ORDERED: VIAGRA 25MG TAB25 MG PO (06:53)
[2018-02-13] MEDS ORDERED: VITAMIN D31000 I1 PO (06:55)
[2018-02-13] MEDS ORDERED: CIPRO 500MG TA500 MG PO (06:56)
[2018-02-13] MEDS ORDERED: SINGULAIR 110 MG/TAB PO (06:56)
[2018-02-14 03:48] VITALS: BP 110/71; PULSE 80; TEMP 99.2
[2018-02-14 07:53] VITALS: BP 140/69; PULSE 78; TEMP 98.8
[2018-02-14 11:30] VITALS: BP 108/66; PULSE 87; TEMP 98.8
[2018-02-14 15:29] VITALS: BP 113/69; PULSE 84; TEMP 98.9
[2018-02-14 20:32] VITALS: BP 119/73; PULSE 89; TEMP 99.3
[2018-02-14 23:49] VITALS: BP 109/72; PULSE 93; TEMP 99
[2018-02-15 03:22] VITALS: BP 121/77; PULSE 86; TEMP 98.7
[2018-02-15 07:08] VITALS: BP 124/76; PULSE 81; TEMP 98.4
[2018-02-15 12:13] VITALS: BP 115/65; PULSE 89; TEMP 98
== END 2018-02-15 16:10 | disposition home or self-care (01) ==
LOC: SDCO 05:23 → SURG 09:17 → SDCO 02-15 16:10
DX: N40.1 Benign prostatic hyperplasia with lower urinary tract symptoms (principal); R33.8 Other retention of urine; J45.909 Unspecified asthma, uncomplicated; J44.9 Chronic obstructive pulmonary disease, unspecified; J18.9 Pneumonia, unspecified organism; K21.9 Gastro-esophageal reflux disease without esophagitis; M19.90 Unspecified osteoarthritis, unspecified site; I12.9 Hypertensive chronic kidney disease with stage 1 through stage 4 chronic kidney disease, or unspecified chronic kidney disease; N18.9 Chronic kidney disease, unspecified; N39.0 Urinary tract infection, site not specified; D53.9 Nutritional anemia, unspecified; I48.91 Unspecified atrial fibrillation; N52.9 Male erectile dysfunction, unspecified; E78.5 Hyperlipidemia, unspecified; C90.00 Multiple myeloma not having achieved remission; Z88.0 Allergy status to penicillin; Z80.42 Family history of malignant neoplasm of prostate
CPT/HCPCS: OP; J0690; J2250; J2270; J2704; J3480; J7120

== ENCOUNTER 2021-07-13 13:14 | Emergency (ER) | payer MEDICARE, OTHER ==
[~2021-07-13] VITALS: Ht 177.8 cm; Wt 88.6 kg
[~2021-07-13 13:14] MED LIST changes: +AZO URINARY PAI95 MG PO; +CIPRO 500MG TA500 MG PO; +K-TAB10 PO; +LIPITOR 10MG10 MG PO; +MIRALAX PA17 GM/Dose PO; +PROSCAR 5MG5 MG PO; +VIAGRA 25MG TAB25 MG PO; +VITAMIN D31000 I1 PO
[2021-07-13 13:58] VITALS: TEMP 98.6
[2021-07-13 14:20] LABS: COLLECTION METHOD CLEAN CATCH
[2021-07-13 14:36] LABS: MUCOUS Present (NOT PRESENT); SQUAMOUS EPITHELIAL 0-2 /hpf (0-10); URINE BACTERIA Rare /hpf (NONE SEEN); URINE RBC 0-2 /hpf (0-2)
[2021-07-13 14:40] LABS: PH 5 (5-8); URINE APPEARANCE Clear (CLEAR/HAZY); URINE BILIRUBIN Negative (NEGATIVE); URINE BLOOD Negative (NEGATIVE); URINE COLOR Straw (YELLOW); URINE GLUCOSE Negative (NEGATIVE); URINE KETONE Negative (NEGATIVE); URINE LEUKOCYTE ESTERASE Negative (NEGATIVE); URINE NITRATE Negative (NEGATIVE); URINE PROTEIN(semi-quant) Negative (NEGATIVE); URINE UROBILINOGEN Negative (NEGATIVE)
[2021-07-13 17:11] LABS: BASO % 0.4 % (0.0-2.0); EOS # 0.2 K/mm3 (0.0-0.7); GRAN % 59.4 % (42.2-75.2); HEMATOCRIT 39.9 % (42.0-52.0); HEMOGLOBIN 13.6 g/dl (13.5-18.0); LYMPH # 1.1 K/mm3 (1.2-3.4); LYMPH % 21.5 % (20.0-51.0); MEAN CELL VOLUME 90 fl (80.0-100.0); MEAN CORPUSCULAR HEMOGLOBIN 31 pg (27-31); MEAN CORPUSCULAR HGB CONC 34 g/dl (33.0-37.0); MEAN PLATELET VOLUME 9.9 fl (7.4-10.4); MONO # 0.7 K/mm3 (0.1-0.6); MONO % 13.3 % (1.7-9.3); PLATELET COUNT 200 K/mm3 (130-400); RED BLOOD COUNT 4.42 M/mm3 (4.20-5.60)
[2021-07-13 17:28] LABS: ALANINE AMINOTRANSFERASE 20 U/L (0-55); ALKALINE PHOSPHATASE 98 U/L (40-150); ANION GAP 13 mmol/L (7-16); AST,SGOT 25 U/L (5-34); BILIRUBIN,TOTAL 0.7 mg/dL (0.2-1.2); BLOOD UREA NITROGEN 13 mg/dL (8-26); CALCIUM 9.3 mg/dL (8.4-10.2); CARBON DIOXIDE 25 mmol/L (23-31); CHLORIDE 103 mmol/L (98-107); CREATININE, serum 0.99 mg/dL (0.72-1.25); GLUCOSE 110 mg/dL (70-99); LIPASE < 10 U/L (8-78); POTASSIUM 3.6 mmol/L (3.5-4.5); SODIUM 141 mmol/L (136-145); TOTAL PROTEIN 6.5 gm/dL (6.2-8.1)
[2021-07-13] MEDS ORDERED: GLYCERIN S1 SUPP.REC RC (18:05)
[2021-07-13 18:21] VITALS: BP 167/116; PULSE 80
[2021-07-14] MEDS ORDERED: CIPRO 500MG TA500 MG PO (16:15)
== END 2021-07-13 18:26 | disposition home or self-care (01) ==
LOC: COL.ER 13:14
PROVIDERS: Family Medicine; Physician Assistant
DX: K59.00 Constipation, unspecified (principal); N40.0 Benign prostatic hyperplasia without lower urinary tract symptoms; Z79.899 Other long term (current) drug therapy
CPT/HCPCS: J7030

== ENCOUNTER 2023-08-04 17:55 | Observation (INO) | payer MEDICARE, OTHER ==
[~2023-08-04] VITALS: Ht 175.3 cm; Wt 86.4 kg
[~2023-08-04 17:55] MED LIST changes: +GLYCERIN S1 SUPP.REC RC
[2023-08-04] MEDS ORDERED: NS 1,000 ML IV ONE (19:00)
[2023-08-04 19:22] LABS: HEMOGLOBIN 10.4 g/dl (13.5-18.0); MEAN CELL VOLUME 91 fl (80.0-100.0); MEAN CORPUSCULAR HEMOGLOBIN 28 pg (27-31); MEAN CORPUSCULAR HGB CONC 31 g/dl (33.0-37.0); MEAN PLATELET VOLUME 10.3 fl (7.4-10.4); PLATELET COUNT 145 K/mm3 (130-400); REDCELL DISTRIBUTION WIDTH-CV 18.3 % (11.5-14.5)
[2023-08-04 19:28] LABS: HEMATOCRIT 33.7 % (42.0-52.0)
[2023-08-04 19:36] LABS: INR 1.2 (0.8-3.0); PROTHROMBIN TIME 13.2 SECONDS (9.7-12.8)
[2023-08-04 19:47] LABS: ALANINE AMINOTRANSFERASE 12 U/L (0-55); ALBUMIN 2.8 gm/dL (3.4-4.8); ALKALINE PHOSPHATASE 85 U/L (40-150); ANION GAP 8 mmol/L (7-16); AST,SGOT 14 U/L (5-34); BILIRUBIN,TOTAL 1.5 mg/dL (0.2-1.2); BLOOD UREA NITROGEN 15 mg/dL (8-26); CARBON DIOXIDE 21 mmol/L (23-31); CHLORIDE 109 mmol/L (98-107); CREATINE KINASE 16 U/L (30-200); CREATININE, serum 1.31 mg/dL (0.72-1.25); GLUCOSE 121 mg/dL (70-99); POTASSIUM 4.2 mmol/L (3.5-4.5); SODIUM 138 mmol/L (136-145); TOTAL PROTEIN 5.7 gm/dL (6.2-8.1)
[2023-08-04 19:49] LABS: ALCOHOL(ethanol),MEDICAL < 10 mg/dL (0-10)
[2023-08-04 19:55] LABS: TROPONIN-I < 0.010 ng/mL (0.00-0.033)
[2023-08-04 19:56] LABS: BAND 8 % (0-10); LYMPHOCYTE 5 % (20.0-51.0); NEUTROPHILS 81 % (42.0-75.2); NUCLEATED RED BLOOD CELL 2 (0-6); PLATELET ESTIMATE NORMAL (NORMAL)
[2023-08-04 19:57] LABS: ANISOCYTOSIS 2+; HYPOCHROMIA 1+
[2023-08-04] MEDS ORDERED: NS 74 ML IV SCH (20:27)
[2023-08-04] MEDS ORDERED: Iohexol 300 - 100 ML VIAL IV ONE (20:27)
[2023-08-04] MEDS ORDERED: Heparin 5,000 UNITS/ML 1 ML VIAL IV ONE (21:30)
[2023-08-04] MEDS ORDERED: Heparin 5,000 UNITS/ML 1 ML VIAL IV PRN (21:30)
[2023-08-04] MEDS ORDERED: Heparin/D5W 250 ML IV SCH (21:30)
[2023-08-04] MEDS ORDERED: SINGULAIR 110 MG/TAB PO (21:42)
[2023-08-04] MEDS ORDERED: PROAIR HFA0.09 MG/AC IH (21:43)
[2023-08-04] MEDS ORDERED: Albuterol 0.083% Neb Soln 2.5 MG/3 ML UD IH PRN (21:45)
[2023-08-04] MEDS ORDERED: NEURONTIN300 MG/CAP PO (21:58)
[2023-08-04] MEDS ORDERED: ELIQUIS 5MG PO (22:00)
[2023-08-04] MEDS ORDERED: TOPROL XL 50MG50 MG PO (22:00)
[2023-08-04] MEDS ORDERED: ALLEGRA 180MG180 MG PO (22:02)
[2023-08-04] MEDS ORDERED: POMA4CAP (22:03)
[2023-08-04] MEDS ORDERED: PRAVACHOL 40MG40 MG PO (22:04)
[2023-08-04] MEDS ORDERED: FERROUSAL325 MG PO (22:04)
[2023-08-04] MEDS ORDERED: PRILOSEC 20MG20 MG PO (22:04)
[2023-08-04] MEDS ORDERED: PERIDEX (CHLOR480 ML MM (22:05)
[2023-08-04] MEDS ORDERED: VITAMINC1000TA PO (22:05)
[2023-08-04] MEDS ORDERED: SF 1.1% GEL1.1% DT (22:05)
[2023-08-04 22:07] LABS: PARTIAL THROMBOPLASTIN TIME 33.5 SECONDS (26.0-37.0)
[2023-08-04] MEDS ORDERED: OMEGA-3 1000 MG1 CAP PO (22:07)
[2023-08-04] MEDS ORDERED: Acetaminophen 325 MG TAB PO PRN (22:15)
[2023-08-04] MEDS ORDERED: NS 1,000 ML IV SCH (22:30)
[2023-08-04 22:32] VITALS: BP 158/105; PULSE 75
--- NOTE | 2023-08-04 23:15 | NUR ---
PT ARRIVED FROM ED VIA STRETCHER. PT AMBUATED TO BED WITH STAND BY ASSIST. PT HAS HEPARIN DRIP RUNNING AT 15.5ML/HR. NEXT XA ORDERED FOR 0400. PT IS ON RA. PT IS SR ON TELE. PT IS AXOX3. PT ORIENTED TO ROOM AND FLOOR. PT INSTRUCTED ON FALL RISK, CALLING FOR ALL NEEDS AND NOT TO GET UP WITHOUT ASSISTANCE. PT HAS CALL LIGHT AND INSTRUCTED HOW TO USE. UPDATED ON PLAN OF CARE AND PHONE NUMBERS GIVEN. ASSESSMENT AND ADMISSION COMPLETED.
[2023-08-04 23:26] VITALS: PULSE 79; TEMP 97.9
[2023-08-05] VITALS (10 sets, daily range): BP systolic 145–176; BP diastolic 89–107; PULSE 73–81; TEMP 97.5–98.1
[2023-08-05] MEDS ORDERED: DECADRON 4MG TAB4 MG (00:02)
[2023-08-05] MEDS ORDERED: DECADRON 4MG TAB4 MG PO ×2 (00:03→12:20)
[2023-08-05 02:12] LABS: MAGNESIUM 1.9 mg/dL (1.6-2.6); PHOSPHOROUS 2.8 mg/dL (2.3-4.7)
--- NOTE | 2023-08-05 03:54 | NUR ---
0305-TAE TANK BUILDER NOTIFIED OF ELEVATED BP. NO ORDERS RECEIVED.
[2023-08-05 04:56] LABS: MEAN CELL VOLUME 89 fl (80.0-100.0); MEAN CORPUSCULAR HGB CONC 32 g/dl (33.0-37.0); MEAN PLATELET VOLUME 10.7 fl (7.4-10.4); PLATELET COUNT 140 K/mm3 (130-400); RED BLOOD COUNT 3.48 M/mm3 (4.20-5.60)
[2023-08-05 05:01] LABS: HEMOGLOBIN 9.8 g/dl (13.5-18.0); MEAN CORPUSCULAR HEMOGLOBIN 28 pg (27-31)
[2023-08-05 05:27] LABS: CALCIUM 8.5 mg/dL (8.4-10.2); CREATININE, serum 1.2 mg/dL (0.72-1.25); POTASSIUM 4.4 mmol/L (3.5-4.5)
[2023-08-05 06:15] LABS: BAND 13 % (0-10); LYMPHOCYTE 27 % (20.0-51.0); NEUTROPHILS 60 % (42.0-75.2); PLATELET ESTIMATE NORMAL (NORMAL)
[2023-08-05 06:16] LABS: ANISOCYTOSIS 1+; HYPOCHROMIA 1+
--- NOTE | 2023-08-05 07:50 | NUR ---
0715 HEPXA NOT DRAWN. SHAYNA FROM LAB CALLED AND NOTIFIED OF THIS AND TOLD THIS NURSE THAT PREVIOUS ATTEMPTS WERE UNSUCCESSFUL AND STATED THAT HE WILL ATTEMPT
--- NOTE | 2023-08-05 08:40 | NUR ---
SHAYNA FROM LAB ABLE TO GET BLOOD FOR MORNING LABS. PT UPDATED ON PICC PLACEMENT PER HOSPITALIST, PT REFUSING AT THIS TIME AND IS OKAY WITH LAB TRYING. PT HAS A PORT TO HIS LEFT CHEST THAT IS FOR CHEMO ONLY PER PT. HOSPITALIST NOTIFIED OF ELEVATED BLOOD PRESSURES AND RESUMED PTS HOME MEDS. PRN HYDRALAZINE GIVEN PER ORDER. PT DENIES NEEDS AT THIS TIME AND IS EATING BREAKFAST. BED IN LOWEST POSITION, CALL LIGHT IN REACH, BED ALARM ON
--- NOTE | 2023-08-05 08:40 | NUR ---
DR RASMUSSEN NOTIFIED OF CAROTID ULTRASOUND RESULTS, UNSUCCESSFUL ATTEMPTS WITH LAB AND HEPARIN STILL ON STANDY. PROVIDER GAVE THIS NURSE A VERBAL ORDER FOR PICC PLACEMENT. THIS NURSE VERBALIZED UNDERSTANDING
[2023-08-05] MEDS ORDERED: hydrALAZINE 20 MG/ML 1 ML VIAL IV PRN (08:45)
[2023-08-05] MEDS ORDERED: Gabapentin 300 MG CAP PO SCH (09:00)
[2023-08-05] MEDS ORDERED: Montelukast 10 MG TAB PO SCH (09:00)
[2023-08-05] MEDS ORDERED: Apixaban 5 MG TAB PO SCH (09:00)
--- NOTE | 2023-08-05 09:00 | NUR ---
PT RESTING IN BED UPON ENTERING. ASSESSMENT DONE, MEDS GIVEN PER ORDER. PT DENIES PAIN OR SHORTNESS OF BREATH AT THIS TIME. NS RUNNING AT 75MLS/HR PER ORDER IN RIGHT WRIST AND HEPARIN ON STANDBY. PT HAS A PORT TO LEFT CHEST NOT ACCESSED AND STATES ITS FOR CHEMO ONLY. BILATERAL LOWER EXTREMITY +1, LUNGS DIMINISHED IN THE UPPER LOBES AND CLEAR IN BILAT BASES. HOSPITALIST AWARE OF ELEVATED BLOOD PRESSURES THIS MORNING. PT DENIES NEEDS AT THIS TIME. BED IN LOWEST POSITION, CALL LIGHT IN REACH, BED ALARM ON
--- NOTE | 2023-08-05 11:35 | NUR ---
horticultural worker and student Danika met with pt to complete discharge planning. Pt reports he lives in [place] with his , Yeny [phone]. He reports he goes to the [facility] and is on the red team. He obtains medications for [facility] and [facility]. He does not have difficulties affording. He does not have a DPOA-HC and declines one. He is independent with ADLS and uses no DME. PT reccomended HH or OP. Pt declined services and reports he is not homebound. He intends to discharge home today. Discharge Plan: Home
[2023-08-05] MEDS ORDERED: VENTOLIN0.09 MG IH (12:17)
[2023-08-05] MEDS ORDERED: TOPROL XL 50MG50 MG PO (12:18)
[2023-08-05] MEDS ORDERED: CRESTOR40 MG PO (12:19)
[2023-08-05] MEDS ORDERED: PRAVACHOL 40MG40 MG PO (12:19)
[2023-08-05] MEDS ORDERED: PRILOSEC 20MG20 MG PO (12:21)
[2023-08-05] MEDS ORDERED: NATURAL IRON65 MG PO (12:22)
[2023-08-05] MEDS ORDERED: OPTIVE 0.5%-0.915 ML OU (12:24)
[2023-08-05] MEDS ORDERED: MIRALAX PA17 GM/Dose PO (12:26)
[2023-08-05] MEDS ORDERED: VIAGRA100 M1 PO (12:27)
[2023-08-05] MEDS ORDERED: DENTA 5000 PLUS1.1% DT (12:27)
[2023-08-05] MEDS ORDERED: ELIQUIS 5MG PO (13:26)
--- NOTE | 2023-08-05 14:28 | NUR ---
IV AND TELE REMOVED. PT DRESSED IN PERSONAL CLOTHES AND AT BEDSIDE. DISCHARGE INSTRUCTIONS GIVEN AND ALL QUESTIONS ANSWERED. PT DENIES NEEDS AT THIS TIME. PT ESCORTED TO PERSONAL VEHICLE VIA WHEELCHAIR BY YENY FERREIRA
== END 2023-08-05 14:29 | disposition home or self-care (01) ==
LOC: COL.ER 17:55 → MEDICAL 22:29
PROVIDERS: Emergency Medicine; Nurse Practitioner Family; ADMIT Internal Medicine
DX: I26.99 Other pulmonary embolism without acute cor pulmonale (principal); I10 Essential (primary) hypertension; E78.5 Hyperlipidemia, unspecified; J45.909 Unspecified asthma, uncomplicated; C90.00 Multiple myeloma not having achieved remission; R91.1 Solitary pulmonary nodule; C61 Malignant neoplasm of prostate; E87.20 Acidosis, unspecified; D64.9 Anemia, unspecified; Z79.899 Other long term (current) drug therapy
CPT/HCPCS: G0378; J0360; J1644; J7030; Q9967

== ENCOUNTER 2023-11-21 09:41 | Day surgery (SDC) | payer MEDICARE, OTHER ==
[2023-11-21] VITALS (12 sets, daily range): BP systolic 123–167; BP diastolic 78–100; PULSE 57–69; TEMP 97.8
[~2023-11-21] VITALS: Ht 175.3 cm; Wt 79.7 kg
[~2023-11-21 09:41] MED LIST changes: +ALLEGRA 180MG180 MG PO; +CRESTOR40 MG PO; +DECADRON 1MG TAB1 MG PO; +DECADRON 4MG TAB4 MG; +DECADRON 4MG TAB4 MG PO; +DENTA 5000 PLUS1.1% DT; +FERROUSAL325 MG PO; +NATURAL IRON65 MG PO; +NEURONTIN300 MG/CAP PO; +OMEGA-3 1000 MG1 CAP PO; +OPTIVE 0.5%-0.915 ML OU; +PERIDEX (CHLOR480 ML MM; +POMA4CAP; +PRAVACHOL 40MG40 MG PO; +PRILOSEC 20MG20 MG PO; +SF 1.1% GEL1.1% DT; +TOPROL XL 50MG50 MG PO; +VENTOLIN0.09 MG IH; +VIAGRA100 M1 PO; +VITAMINC1000TA PO
[2023-11-21] MEDS ORDERED: 1/2 NS 1,000 ML IV SCH (10:00)
[2023-11-21 10:31] LABS: HEMOGLOBIN 11.4 g/dl (13.5-18.0); MEAN CELL VOLUME 82 fl (80.0-100.0); MEAN CORPUSCULAR HEMOGLOBIN 26 pg (27-31); MEAN CORPUSCULAR HGB CONC 32 g/dl (33.0-37.0); MEAN PLATELET VOLUME 11.6 fl (7.4-10.4); PLATELET COUNT 227 K/mm3 (130-400); RED BLOOD COUNT 4.34 M/mm3 (4.20-5.60); REDCELL DISTRIBUTION WIDTH-CV 15.9 % (11.5-14.5)
[2023-11-21 10:32] LABS: HEMATOCRIT 35.7 % (42.0-52.0)
[2023-11-21] MEDS ORDERED: ALAVERT10 M1 PO (11:03)
[2023-11-21] MEDS ORDERED: NATURAL C500 MG PO (11:05)
[2023-11-21] MEDS ORDERED: THERA-D 20002000 IU PO (11:07)
[2023-11-21 11:11] LABS: INR 1.1 (0.8-3.0); PROTHROMBIN TIME 11.6 SECONDS (9.7-12.8)
[2023-11-21] MEDS ORDERED: MULTIPLE VITAMI1 CAP PO (11:11)
[2023-11-21 11:14] LABS: PARTIAL THROMBOPLASTIN TIME 30.7 SECONDS (26.0-37.0)
[2023-11-21 11:22] LABS: CREATININE, serum 0.96 mg/dL (0.72-1.25); POTASSIUM 3.8 mEq/L (3.5-4.5)
--- NOTE | 2023-11-21 12:10 | NUR ---
Please see merge documentation for record of interventions, vitals and medications administered during left heart cath with Dr. Uribe
[2023-11-21] MEDS ORDERED: Midazolam 2 MG/2 ML VIAL IV SCH (12:19)
[2023-11-21] MEDS ORDERED: fentaNYL 50 MCG/ML 2 ML VIAL IV SCH (12:20)
[2023-11-21] MEDS ORDERED: Iohexol 350 - 100 ML VIAL INCOR ONE (12:21)
--- NOTE | 2023-11-21 12:52 | NUR ---
Ashley was transferred back to rm 11 in the express unit after LHC with Dr. Uribe. Rt groin dressing site is soft, dressing clean dry and intact. Pedal pulses 2+ bilat. Ashley is not having any complaints. He is set up on monitor for post procedure vitals. Bedside report and handoff of care to Sridevi CHEN.
--- NOTE | 2023-11-21 17:17 | NUR ---
Pt ambulated to [facility] accompanied by family. Pt was scheduled for a [facility]. Consent for the procedure signed. EKG done. IV started, labs drawn. Meds and HX reviewed with the pt. Pt was prepped by analytical lab technician for the [facility], and taken down to analytical lab technician. Post procedure the pt came back to [facility], right groin site assessed. No bleeding noticed, site soft to the touch. Pt was orderd something to eat and given something to drink. pt recovered with us for about 4 hrs and was bedrest for the 4 hr recovery. During the recovery the right groin site was assessed and remained clean and soft to the touch. At the end of the recovery the pt was given discharge education and information. No questions at this time. IV dc'd and pt exited the unit by wheelchair to family members car.
== END 2023-11-21 17:19 | disposition home or self-care (01) ==
LOC: COL.CAR 09:41
PROVIDERS: Internal Medicine Cardiovascular Disease
DX: I25.10 Atherosclerotic heart disease of native coronary artery without angina pectoris (principal); I48.91 Unspecified atrial fibrillation; I10 Essential (primary) hypertension; E78.00 Pure hypercholesterolemia, unspecified; Z79.01 Long term (current) use of anticoagulants; Z79.899 Other long term (current) drug therapy
CPT/HCPCS: C1760; C1894; J1644; J2250; J3010; Q9967